=== PATIENT | female | born 1995 | race Caucasian/White ===

== ENCOUNTER 2018-09-08 21:01 | Emergency (ER) | payer SELFPAY ==
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
--- NOTE | 2018-09-08 23:53 | RADIOLOGY IMAGING REPORT ---
FACILITY: [facility] [place] PATIENT NAME: America Levi : 1995 MR: [id number] V: [id number] EXAM DATE: [id number] ORDERING PHYSICIAN: CHAPARRITA MEEHAN TECHNOLOGIST: [place] [facility] [place] : 1995 Visit/Account:[id number] Date of Sevice: 09/08/2018 Exam type: ELBOW 3 VIEW RIGHT History: Fall Comparison: None. Findings: There is an anterior elbow effusion concerning for an occult intraocular elbow fracture. No definitiv e fracture seen. Radial head appears to be intact. Soft tissues are otherwise unremarkable. IMPRESSION: 1. Anterior elbow effusion without definitive fracture. The presence of effusion is concerning for an occult intraocular fracture. If patient's symptoms persist, recommend repeat plain films in 7-10 day s. Report Dictated By: David Galvez MD at 09/08/2018 11:46 PM Report E-Signed By: David Galvez MD at 09/08/2018 11:48 PM WSN:[id number]
--- NOTE | 2018-09-08 23:54 | RADIOLOGY IMAGING REPORT ---
FACILITY: [facility] PATIENT NAME: America Levi : 1995 MR: [id number] V: [id number] EXAM DATE: ORDERING PHYSICIAN: CHAPARRITA MEEHAN TECHNOLOGIST: Location: [facility] Patient: America Levi : 1995 Visit/Account:[id number] Date of Sevice: 09/08/2018 Exam type: 2 views of the hips History: Trauma Comparison: None. Findings: There is no acute fracture the pelvis or right hip. Joint spaces are preserved. SI joints are unremar kable. Soft tissues are unremarkable. IMPRESSION: 1. No acute fracture of the pelvis or right hip. Report Dictated By: David Galvez MD at 09/08/2018 11:48 PM Report E-Signed By: David Galvez MD at 09/08/2018 11:48 PM WSN:[id number]
[2018-09-09 00:30] VITALS: BP 98/48
[2018-09-09] MEDS ORDERED: CEPH500C24 PO (00:40)
[2018-09-09] MEDS ORDERED: CEPHALEXIN 500 MG CAP TH 2 CAP/BOTTLE PO ONE (00:40)
[2018-09-09] MEDS ORDERED: LIDOCAINE 1% MDV 200 MG/20 ML INJ ONE (00:40)
[2018-09-09] MEDS ORDERED: cefTRIAXone 1 GM VIAL IM ONE (00:40)
== END 2018-09-09 01:08 | disposition home or self-care (01) ==
LOC: ER 22:22
DX: L03.113 Cellulitis of right upper limb (principal)
CPT/HCPCS: 73080; 73502; 96372; 99284; J0696; J2001